=== PATIENT | female | born 1975 | race Caucasian/White ===

== ENCOUNTER → 2016-12-15 | Outpatient (CLI) | payer OTHER ==
[~2016-12-15] MED LIST: FLEXERIL5 MG PO; FLUOXETINE HYDR40 MG PO
[2016-12-15 12:44] LABS: LYMPH % 30.2 % (10-50.0)
[2016-12-15 16:21] LABS: BUN 9 mg/dL (7-18)
[2016-12-15 16:26] LABS: GFR (ESTIMATED) 80 ML/MIN (59-)
== END ==
LOC: LAB 12:15
PROVIDERS: Nurse Practitioner Family
DX: R94.6 Abnormal results of thyroid function studies (principal); F41.1 Generalized anxiety disorder; Z00.00 Encounter for general adult medical examination without abnormal findings